=== PATIENT | male | born 1995 | race Caucasian/White ===

== ENCOUNTER 2020-05-22 13:08 | Emergency (ER) | payer OTHER ==
[2020-05-22 13:14] VITALS: BP 142/62; PULSE 84; TEMP 98; BMI 27.3
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
== END 2020-05-22 13:58 | disposition home or self-care (01) ==
LOC: JERFT 13:08
DX: Z77.21 Contact with and (suspected) exposure to potentially hazardous body fluids (principal)
CPT/HCPCS: 36415; 86317; 86803; 87340; 87389; 99282-25

== ENCOUNTER 2020-08-06 22:54 | Emergency (ER) | payer OTHER ==
[2020-08-06 23:10] VITALS: BP 136/82; PULSE 78; TEMP 99; BMI 26.6
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
== END 2020-08-06 23:58 | disposition home or self-care (01) ==
LOC: FER 22:54
DX: Z77.21 Contact with and (suspected) exposure to potentially hazardous body fluids (principal)
CPT/HCPCS: 99281-25

== ENCOUNTER 2021-12-22 18:30 | Emergency (ER) | payer OTHER ==
[2021-12-22 20:12] VITALS: BP 135/76; PULSE 66; TEMP 98.6; BMI 27.3
== END 2021-12-22 20:47 | disposition home or self-care (01) ==
LOC: FER 18:30
DX: M25.511 Pain in right shoulder (principal)
CPT/HCPCS: 99283-25

== ENCOUNTER 2022-01-18 21:48 | Emergency (ER) | payer OTHER ==
[2022-01-18 21:54] VITALS: BP 140/78; PULSE 84; TEMP 98.8; BMI 27.3
[2022-01-18] MEDS ORDERED: IBUPROFEN 400 MG TABLET (FP) PO ONE ×2 (21:59→22:03)
== END 2022-01-18 22:13 | disposition home or self-care (01) ==
LOC: FER 21:48
DX: S09.90XA Unspecified injury of head, initial encounter (principal); Y04.2XXA Assault by strike against or bumped into by another person, initial encounter
CPT/HCPCS: 99283-25

== ENCOUNTER 2022-06-30 20:31 | Emergency (ER) | payer OTHER ==
[2022-06-30 20:36] VITALS: BP 135/89; PULSE 90; RESP 16; TEMP 99; BMI 28.1
== END 2022-06-30 21:08 | disposition home or self-care (01) ==
LOC: FER 20:31
DX: S80.812A Abrasion, left lower leg, initial encounter (principal); S50.811A Abrasion of right forearm, initial encounter; W01.0XXA Fall on same level from slipping, tripping and stumbling without subsequent striking against object, initial encounter
CPT/HCPCS: 99281-25